=== PATIENT | female | born 1965 | race African-American/Black ===

== ENCOUNTER 2018-05-04 20:08 | Emergency (ER) | payer BC ==
[2018-05-04 21:01] LABS: Absolute Lymphocytes (CBC) 1.5 K/uL (0.7-4.9); Absolute Monocytes 0.6 K/uL (0.1-1.3); Absolute Neutrophil 1.5 K/uL (1.8-8.0); Basophils % 0.6 % (0-1.3); Eosinophils % 10.3 % (0-4.4); Hematocrit 39.9 % (36.0-45.0); Lymphocytes % 37.7 % (15.3-44.8); MCV 77.4 fL (80-100); MPV 8.5 fL (7.6-11.3); Monocytes % 14.9 % (3.3-12.3); RBC Red Blood Cell Count 5.15 M/uL (3.86-4.86)
[2018-05-04 21:16] LABS: Protime INR 0.97
[2018-05-04 21:29] LABS: ALT/SGPT 30 U/L (12-78); AST/SGOT 22 U/L (15-37); Albumin 3.9 g/dL (3.4-5.0); Alkaline Phosphatase 109 U/L (45-117); BUN Blood Urea Nitrogen 19 mg/dL (7-18); Bicarbonate 29 mmol/L (21-32); Bilirubin Direct < 0.1 mg/dL (0-0.2); Bilirubin Total 0.2 mg/dL (0.2-1.0); Glucose Level 111 mg/dL (74-106); Magnesium 2.2 mg/dL (1.8-2.4); NT PRO-BNP 15 pg/mL (<125); Potassium 4.2 mmol/L (3.5-5.1); Protein, Total 7.7 g/dL (6.4-8.2); Sodium Level 142 mmol/L (136-145); Troponin (Emerg Dept Use Only) < 0.02 ng/mL (0.0-0.045)
--- NOTE | 2018-05-04 23:47 | ER ---
Nurse's Notes [facility] Name: Laine Friedman Age: 52 yrs Sex: Female : 1965 Arrival Date: 05/04/2018 Time: 20:14 Bed 16 Private MD: Daljit Anthony Diagnosis: Pneumonia, unspecified organism Presentation: 05/04 20:15 Presenting complaint: Patient states: I have been having arm pain and chest pain on and jb4 off since Saturday. Today was especially bad so I came to get checked out. Transition of care: patient was not received from another setting of care. Onset of symptoms was April 28, 2018. Risk Assessment: Do you want to hurt yourself or someone else? Patient reports no desire to harm self or others. Initial Sepsis Screen: Does the patient meet any 2 criteria? HR > 90 bpm. No. Patient's initial sepsis screen is negative. Does the patient have a suspected source of infection? No. Patient's initial sepsis screen is negative. Care prior to arrival: None. 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 - Social history:: Smoking status: Patient/guardian denies using tobacco, Patient/guardian denies using alcohol. - Ebola Screening: : No symptoms or risks identified at this time. Screenin:15 Abuse screen: Denies threats or abuse. Nutritional screening: No deficits noted. jb4 Tuberculosis screening: No symptoms or risk factors identified. Fall Risk None identified. Assessment: 20:15 General: Appears in no apparent distress. comfortable, Behavior is calm, cooperative, jb4 appropriate for age. Pain: Complains of pain in chest and right arm Pain radiates to left arm Pain currently is 5 out of 10 on a pain scale. Quality of pain is described as pressure, tingling, Pain began Saturday. Neuro: Level of Consciousness is awake, alert, obeys commands, Oriented to person, place, time, situation. Cardiovascular: Heart tones S1 S2 present Patient's skin is warm and dry. Rhythm is sinus rhythm. Respiratory: Airway is patent Respiratory effort is even, unlabored, Respiratory pattern is regular, symmetrical, Breath sounds are clear bilaterally. GI: No signs and/or symptoms were reported involving the gastrointestinal system. : No signs and/or symptoms were reported regarding the genitourinary system. EENT: No signs and/or symptoms were reported regarding the EENT system. Derm: Skin is intact, Skin is pink, warm \T\ dry. Musculoskeletal: Circulation, motion, and sensation intact. 21:15 Reassessment: Patient appears in no apparent distress at this time. Patient and/or jb4 family updated on plan of care and expected duration. Pain level reassessed. Patient is alert, oriented x 3, equal unlabored respirations, skin warm/dry/pink. PT is resting in bed with family at the bedside. given warm blanket. 22:39 Reassessment: Patient appears in no apparent distress at this time. Patient and/or jb4 family updated on plan of care and expected duration. Pain level reassessed. Patient is alert, oriented x 3, equal unlabored respirations, skin warm/dry/pink. 05/05 00:00 Reassessment: Patient appears in no apparent distress at this time. Patient and/or jb4 family updated on plan of care and expected duration. Pain level reassessed. Patient is alert, oriented x 3, equal unlabored respirations, skin warm/dry/pink. Discussed D/c, F/u with pt, denies questions or concerns. Vital Signs: 05/04 20:15 BP 146 / 93; Pulse 110; Resp 18; Temp 97.9(O); Pulse Ox 100% on R/A; Weight 98.88 kg jb4 (R); Height 5 ft. 6 in. (167.64 cm) (R); Pain 5/10; 21:15 BP 145 / 88; Pulse 88; Resp 16; Pulse Ox 100% on R/A; jb4 22:30 BP 132 / 75; Pulse 84; Resp 16; Pulse Ox 97% on R/A; jb4 23:45 BP 135 / 82; Pulse 72; Resp 16; Pulse Ox 97% on R/A; jb4 20:15 Body Mass Index 35.19 (98.88 kg, 167.64 cm) jb4 ED Course: 20:14 Patient arrived in ED. es 20:15 Daljit Anthony MD is Private Physician. es 20:15 Arm band placed on left wrist. jb4 20:15 Patient has correct armband on for positive identification. Placed in gown. Bed in low jb4 position. Call light in reach. Side rails up X 1. pvc monitor on. Pulse ox on. NIBP on. 20:15 Patient maintains SpO2 saturation greater than 95% on room air. jb4 20:18 Selena Tavera FNP-C [facility]. kb 20:18 John Harris MD is Attending Physician. kb 20:19 Anthony Malave, BEKAH is Primary Nurse. jb4 20:21 Triage completed. jb4 21:00 Inserted saline lock: 22 gauge in left forearm, using aseptic technique. jb4 21:18 Notified Nurse Practitioner and/or Physician Size Worker of a critical lab result(s), d fc dimer of 980. 22:31 XRAY Chest (1 view) In Process Unspecified. EDMS 22:36 CT Chest For PE Angio In Process Unspecified. EDMS 05/05 00:10 No provider procedures requiring assistance completed. jb4 00:10 IV discontinued, intact, bleeding controlled. jb4 Administered Medications: 00:10 Drug: Zithromax 500 mg Route: PO; jb4 00:11 Follow up: Response: No adverse reaction jb4 00:11 Drug: predniSONE 40 mg Route: PO; jb4 00:11 Follow up: Response: No adverse reaction jb4 Outcome: 05/04 23:47 Discharge ordered by . kb 05/05 00:10 Discharged to home ambulatory. jb4 Condition: stable Discharge instructions given to patient, Instructed on discharge instructions, follow up and referral plans. medication usage, Demonstrated understanding of instructions, follow-up care, wound care, Prescriptions given X 2. 00:12 Patient left the ED. jb4 Signatures: Dispatcher [employer] EDNE Selena Tavera FNP-C INTERIM CONTROLLER-Barbie Powell Felicia, RN RN fc Anthony Malave, RN RN jb4
--- NOTE | 2018-05-04 23:47 | EDPHYS ---
Physician Documentation [facility] Name: Laine Friedman Age: 52 yrs Sex: Female : 1965 Arrival Date: 05/04/2018 Time: 20:14 Bed 16 Private MD: Daljit Anthony ED Physician John Harris HPI: 05/04 20:41 This 52 yrs old Black Female presents to ER via Ambulatory with complaints of Chest kb Pain. 20:41 The patient or guardian complains of pain, that is acute. The complaints affect the kb right upper arm. Context: The problem was sustained at an unknown location, resulted from unknown cause. Onset: The symptoms/episode began/occurred 1 week(s) ago. Treatment prior to arrival includes: no previous treatment. Modifying factors: The symptoms are alleviated by nothing. the symptoms are aggravated by nothing. Associated signs and symptoms: Pertinent positives: pain, Pertinent negatives: decreased range of motion, deformity, erythema, fever, nausea, numbness, swelling, tingling, vomiting, warmth, weakness. Severity of symptoms: At their worst the symptoms were moderate, in the emergency department the symptoms have resolved. The patient has not experienced similar symptoms in the past. The patient has not recently seen a physician. Pt reports intermittent sharp pains that start in right arm, radiate across shoulder blades, into chest and down left arm. Reports "they take my breath away." States she has been having these pains all week, but today it happened twice in 3 hours so she came to get it checked out.. 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 - Social history:: Smoking status: Patient/guardian denies using tobacco, Patient/guardian denies using alcohol. - Ebola Screening: : No symptoms or risks identified at this time. ROS: 20:40 Constitutional: Negative for fever, chills, and weight loss, ENT: Negative for injury, kb pain, and discharge, Neck: Negative for injury, pain, and swelling, Abdomen/GI: Negative for abdominal pain, nausea, vomiting, diarrhea, and constipation, Back: Negative for injury and pain, MS/Extremity: Negative for injury and deformity, Skin: Negative for injury, rash, and discoloration, Neuro: Negative for headache, weakness, numbness, tingling, and seizure. 20:40 Cardiovascular: Positive for chest pain, Negative for edema, orthopnea, palpitations, paroxysmal nocturnal dyspnea. 20:40 Respiratory: Positive for shortness of breath, Negative for cough, dyspnea on exertion, hemoptysis, orthopnea, pleurisy, sputum production, wheezing. Exam: 20:40 Constitutional: This is a well developed, well nourished patient who is awake, alert, kb and in no acute distress. Head/Face: Normocephalic, atraumatic. ENT: Nares patent. No nasal discharge, no septal abnormalities noted. Tympanic membranes are normal and external auditory canals are clear. Oropharynx with no redness, swelling, or masses, exudates, or evidence of obstruction, uvula midline. Mucous membranes moist. Neck: Trachea midline, no thyromegaly or masses palpated, and no cervical lymphadenopathy. Supple, full range of motion without nuchal rigidity, or vertebral point tenderness. No Meningismus. Chest/axilla: Normal chest wall appearance and motion. Nontender with no deformity. No lesions are appreciated. Cardiovascular: Regular rate and rhythm with a normal S1 and S2. No gallops, murmurs, or rubs. Normal PMI, no JVD. No pulse deficits. Respiratory: Lungs have equal breath sounds bilaterally, clear to auscultation and percussion. No rales, rhonchi or wheezes noted. No increased work of breathing, no retractions or nasal flaring. Abdomen/GI: Soft, non-tender, with normal bowel sounds. No distension or tympany. No guarding or rebound. No evidence of tenderness throughout. Skin: Warm, dry with normal turgor. Normal color with no rashes, no lesions, and no evidence of cellulitis. MS/ Extremity: Pulses equal, no cyanosis. Neurovascular intact. Full, normal range of motion. Neuro: Awake and alert, GCS 15, oriented to person, place, time, and situation. Cranial nerves II-XII grossly intact. Motor strength 5/5 in all extremities. Sensory grossly intact. Cerebellar exam normal. Normal gait. Vital Signs: 20:15 BP 146 / 93; Pulse 110; Resp 18; Temp 97.9(O); Pulse Ox 100% on R/A; Weight 98.88 kg jb4 (R); Height 5 ft. 6 in. (167.64 cm) (R); Pain 5/10; 21:15 BP 145 / 88; Pulse 88; Resp 16; Pulse Ox 100% on R/A; jb4 22:30 BP 132 / 75; Pulse 84; Resp 16; Pulse Ox 97% on R/A; jb4 23:45 BP 135 / 82; Pulse 72; Resp 16; Pulse Ox 97% on R/A; jb4 20:15 Body Mass Index 35.19 (98.88 kg, 167.64 cm) jb4 MDM: 20:19 Patient medically screened. kb 20:40 Data reviewed: vital signs, nurses notes. Data interpreted: Pulse oximetry: on room air kb is 100 %. Interpretation: normal. 23:40 Counseling: I had a detailed discussion with the patient and/or guardian regarding: the kb historical points, exam findings, and any diagnostic results supporting the discharge/admit diagnosis, lab results, radiology results, the need for outpatient follow up, a family practitioner, to return to the emergency department if symptoms worsen or persist or if there are any questions or concerns that arise at home. 05/04 20:19 Order name: Basic Metabolic Panel 05/04 20:19 Order name: CBC with Diff 05/04 20:19 Order name: LFT's 05/04 20:19 Order name: Magnesium 05/04 20:19 Order name: NT PRO-BNP 05/04 20:19 Order name: PT-INR 05/04 20:19 Order name: Troponin (emerg Dept Use Only) 05/04 20:39 Order name: D-Dimer 05/04 21:03 Order name: CBC with Automated Diff; Complete Time: 21:10 EDMS 05/04 21:19 Order name: Protime (+INR); Complete Time: 21:50 EDMS 05/04 21:19 Order name: D-Dimer; Complete Time: 21:50 EDMS 05/04 21:30 Order name: Basic Metabolic Panel; Complete Time: 21:50 EDMS 05/04 21:30 Order name: Liver (Hepatic) Function; Complete Time: 21:50 EDMS 05/04 21:30 Order name: Troponin (Emerg Dept Use Only); Complete Time: 21:50 EDMS 05/04 20:19 Order name: XRAY Chest (1 view) kb 05/04 20:19 Order name: EKG; Complete Time: 20:20 kb 05/04 20:19 Order name: Cardiac monitoring; Complete Time: 20:59 kb 05/04 20:19 Order name: EKG - Nurse/Tech; Complete Time: 20:59 kb 05/04 20:19 Order name: IV Saline Lock; Complete Time: 20:59 kb 05/04 20:19 Order name: Labs collected and sent; Complete Time: 20:59 kb 05/04 20:19 Order name: O2 Per Protocol; Complete Time: 20:59 kb 05/04 20:19 Order name: O2 Sat Monitoring; Complete Time: 20:59 kb 05/04 21:30 Order name: NT PRO-BNP; Complete Time: 21:50 EDMS 05/04 21:30 Order name: Magnesium; Complete Time: 21:50 EDMS 05/04 21:46 Order name: CT Chest For PE Angio fc Administered Medications: 05/05 00:10 Drug: Zithromax 500 mg Route: PO; 4 00:11 Follow up: Response: No adverse reaction [facility] 00:11 Drug: predniSONE 40 mg Route: PO; jb4 00:11 Follow up: Response: No adverse reaction [facility] Disposition: 05/04/18 23:47 Discharged to Home. Impression: Pneumonia, unspecified organism. - Condition is Stable. - Discharge Instructions: Community-Acquired Pneumonia, Adult, [id number]. - Prescriptions for Prednisone 20 mg Oral Tablet - take 1 tablet by ORAL route once daily for 5 days; 5 tablet. Zithromax 500 mg Oral Tablet - take 1 tablet by ORAL route once daily for 5 days; 5 tablet. - Medication Reconciliation Form, Thank You Letter, Antibiotic Education, Prescription Opioid Use form. - Follow up: Emergency Department; When: As needed; Reason: Worsening of condition. Follow up: Private Physician; When: 2 - 3 days; Reason: Recheck today's complaints, Continuance of care, Re-evaluation by your physician. Signatures: Dispatcher [employer] Selena Aguirre, RICHAR MARSHALL-Anthony Candelario, RN RN jb4 Corrections: (The following items were deleted from the chart) 00:12 05/04 23:47 05/04/2018 23:47 Discharged to Home. Impression: Pneumonia, unspecified jb4 organism. Condition is Stable. Forms are Medication Reconciliation Form, Thank You Letter, Antibiotic Education, Prescription Opioid Use. Follow up: Emergency Department; When: As needed; Reason: Worsening of condition. Follow up: Private Physician; When: 2 - 3 days; Reason: Recheck today's complaints, Continuance of care, Re-evaluation by your physician. kb
[2018-05-05] MEDS ORDERED: predniSONE 20 MG TAB ONE (00:07)
[2018-05-05] MEDS ORDERED: AZITHROMYCIN 250 MG TAB ONE (00:07)
[2018-05-05 00:55] VITALS: TEMP 97.9
[2018-05-05 00:58] VITALS: O2SAT 97
[2018-05-05 00:59] VITALS: BP 135/82
--- NOTE | 2018-05-05 07:04 | EKG ---
Test Date: 2018-05-04 Test Time: 20:15:49 Operations Asst: MORGAN MEASUREMENT RESULTS: Intervals: Rate: 72 IA: 160 QRSD: 82 QT: 380 QTc: 416 [place]: P: 36 IA: 160 QRS: 6 T: 6 INTERPRETIVE STATEMENTS: Normal sinus rhythm Normal ECG Compared to ECG 09/03/2012 13:04:52 No significant changes Electronically Signed On 05-05-18 07:03:46 CONSUMER ATTORNEY by Justin Velásquez
--- NOTE | 2018-05-05 07:41 | RAD REPORT ---
EXAM DESCRIPTION: CT - Chest For Pe Angio - 05/04/2018 10:36 pm CLINICAL HISTORY: Chest pain for 1 week COMPARISON: None. TECHNIQUE: Dynamically enhanced axial 3 mm thick images of the chest were obtained during administra tion of <100> mL Isovue 370 IV contrast. Coronal and oblique reconstruction images were generated and reviewed. Exam utilizes a protocol for optimal evaluation of pulmonary arterial tree. Maximum intensity projections 3D imaging was utilized All CT scans are performed using dose optimization technique as appropriate and may include automated exposure control or mA/KV adjustment according to patient size. FINDINGS: A pulmonary embolus is not seen. A thoracic aortic aneurysm is not noted. A pleural effusion is not seen. A pericardial effusion is not seen. Mild right lower lobe opacity. IMPRESSION: Negative for a pulmonary embolism. Mild right lower lobe opacity may represent atelectasis or pneumonia
--- NOTE | 2018-05-05 07:43 | RAD REPORT ---
[facility] 10[facility]19 pm CLINICAL HISTORY: Chest pain COMPARISON: 2013 FINDINGS: Mild right lung lower lobe opacity may represent atelectasis or pneumonia The left lung is clear The heart is borderline enlarged
== END 2018-05-05 00:12 | disposition home or self-care (01) ==
LOC: ER 20:08
DX: J18.9 Pneumonia, unspecified organism (principal); I10 Essential (primary) hypertension; J45.909 Unspecified asthma, uncomplicated
CPT/HCPCS: 36415; 71045; 71275; 80048; 80076; 83735; 83880; 84484; 85025; 85379; 85610; 93005; 99285; J7512; Q9967